=== PATIENT | male | born 2000 | race Caucasian/White ===

== ENCOUNTER 2019-07-16 19:29 | Emergency (ER) | payer MEDICAID, OTHER ==
--- NOTE | 2019-07-16 19:43 | EDM.PDOC ---
ED HPI GENERAL MEDICAL PROBLEM - General Stated Complaint: SORE THROAT Time Seen by Provider: 07/16/19 19:40 Source of Information: Reports: Patient History Limitations: Reports: No Limitations - History of Present Illness INITIAL COMMENTS - FREE TEXT/NARRATIVE: 18-year-old male who reports onset of sore throat 5 days ago. He also has left ear pain. Most of the pain is on his left throat. He reports pain as a 2/10 now but it was a 5/10 earlier. It is a getting tight pain that is worse with swallowing. No nasal congestion. No cough. No fevers. He has been sweating. No nausea or vomiting. He has been able to take liquids well. No body aches. There are no other associated signs or symptoms. There are no other modifying factors. 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 Surgical history as detailed below.) - Past Surgical History Musculoskeletal Surgical History: Reports: Other (See Below) (Conscious sedation /general anesthesia for closed reduction of left wrist.) Social & Family History - Tobacco Use Smoking Status *Q: Current Every Day Smoker - Alcohol Use Alcohol Use History: No - Living Situation & Occupation Occupation: Unemployed ED ROS ENT - Review of Systems Review Of Systems: See Below Constitutional: Reports: Malaise. Denies: Fever, Chills HEENT: Reports: Ear Pain (Left ear pain), Throat Pain Respiratory: Reports: No Symptoms Cardiovascular: Reports: No Symptoms GI/Abdominal: Reports: No Symptoms : Reports: No Symptoms Musculoskeletal: Reports: No Symptoms Skin: Reports: No Symptoms Neurological: Reports: No Symptoms Psychiatric: Reports: No Symptoms Hematologic/Lymphatic: Reports: No Symptoms Immunologic: Reports: No Symptoms ED EXAM, ENT - Physical Exam Exam: See Below Exam Limited By: No Limitations General Appearance: Alert, WD/WN, No Apparent Distress Eye Exam: Bilateral Eye: EOMI, Normal Inspection (Sclerae are anicteric) Ears: Normal External Exam, Normal Canal, Hearing Grossly Normal, Normal TMs Nose: Normal Inspection, Normal Mucousa, No Blood Mouth/Throat: Normal Gums, Normal Lips, Normal Teeth, Pharyngeal Erythema. No: Peritonsillar Mass Head: Atraumatic, Normocephalic Neck: Normal Inspection, Supple, Full Range of Motion, Lymphadenopathy (L) Respiratory/Chest: No Respiratory Distress, Lungs Clear, Normal Breath Sounds, No Accessory Muscle Use, Chest Non-Tender Cardiovascular: Normal Peripheral Pulses, Regular Rate, Rhythm, No Murmur GI/Abdominal: Normal Bowel Sounds, Soft, Non-Tender Back: Normal Inspection Extremities: Normal Inspection, Normal Range of Motion, Non-Tender, No Pedal Edema, Normal Capillary Refill Neurological: Alert, Oriented, CN II-XII Intact, Normal Cognition, No Motor/ Sensory Deficits Skin: Warm, Dry, Intact, Normal Color, No Rash Course - Vital Signs Last Recorded V/S: Last Vital Signs Temp 37.3 C 07/16/19 19:30 Pulse 90 07/16/19 19:30 Resp 16 07/16/19 19:30 BP 149/90 H 07/16/19 19:30 Pulse Ox 98 07/16/19 19:30 - Orders/Labs/Meds Labs: Rapid strep was positive. Meds: Medications Discontinued Medications Generic Name Dose Route Start Last Admin Trade Name Winter PRN Reason Stop Dose Admin Penicillin G Procaine/Benzathine 1.2 millunits 07/16/19 20:15 Bicillin C-R 600/600 IM 07/16/19 20:16 ONETIME ONE - Re-Assessments/Exams Free Text/Narrative Re-Assessment/Exam: 07/16/19 20:15: The rapid strep was positive. I will treat the patient with Bicillin 1.2 million units IM. He is in agreement with the plan for treatment with Bicillin. He should increase his fluid intake. He should rest. He may take Tylenol and ibuprofen for pain as needed. Precautions and reasons for return to the emergency department were discussed with the patient while he was in the emergency department and were detailed in his discharge instructions. Departure - Departure Time of Disposition: 20:30 Disposition: Home, Self-Care 01 Condition: Good Clinical Impression: Strep throat - Discharge Information Instructions: Strep Throat, Adult, [id number] Referrals: Roger Rodriguez MD [Primary Care Provider] - Additional Instructions: Your strep screen was positive. You were treated for your strep throat with a penicillin injection. This is all the antibiotics that he should require to treat this infection. You should increase your fluid intake. You should rest. You may take Tylenol 1000 mg by mouth every 6 hours as needed for pain. You may also take ibuprofen 600 mg by mouth every 6 hours as needed for pain. Back to the emergency department for inability to swallow liquids, trouble breathing, unrelenting vomiting or any other concerning sign or symptom. Sepsis Event Note - Focused Exam Vital Signs: Vital Signs Temp Pulse Resp BP Pulse Ox 07/16/19 19:30 37.3 C 90 16 149/90 H 98 Date Exam was Performed: 07/16/19 Time Exam was Performed: 20:21
[2019-07-16 19:53] VITALS: BP 149/90; PULSE 90
[2019-07-16] MEDS ORDERED: Penicillin G Benzathine/Procaine 600-600 1.2 Millunits/2 ML Syringe IM ONE (20:15)
== END 2019-07-16 20:35 | disposition home or self-care (01) ==
LOC: FB.ED 19:29
DX: J02.0 Streptococcal pharyngitis (principal); F17.200 Nicotine dependence, unspecified, uncomplicated; Z91.09 Other allergy status, other than to drugs and biological substances
CPT/HCPCS: 87880; 96372; 99283; J0558

== ENCOUNTER 2020-01-10 19:56 | Emergency (ER) | payer SELFPAY ==
--- NOTE | 2020-01-10 20:13 | EDM.PDOC ---
ED HPI GENERAL MEDICAL PROBLEM - General Chief Complaint: Eye Problems Stated Complaint: EYE INFECTION Time Seen by Provider: 01/10/20 20:10 Source of Information: Reports: Patient History Limitations: Reports: No Limitations - History of Present Illness INITIAL COMMENTS - FREE TEXT/NARRATIVE: 19-year-old male with rash over his left upper eyelid for greater than 1 year it seems to wax and wane and has a scaly appearance and sometimes he "peels some skin off" and he also has sores on both sides of his cheek which are different than this rash that he has only had for the past 3 days. The rash on his left upper eyelid is unchanged from previous. He has had no fevers or chills. There is no pain associated with this. He rates his pain as a 0/10. No vision problems. There is no drainage from his eye. No cough. No difficulty breathing. No trouble swallowing. There are no other associated signs or symptoms. There are no other modifying factors. He is brought into the emergency department by his mother for evaluation. Onset: Other (Rash on left upper eyelid for the past year or greater. 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 (see below) (Nothing) - Related Data Allergies Allergy/AdvReac Type Severity Reaction Status Date / Time animal hair Allergy Intermediate Hives and Uncoded 01/10/20 20:08 Itching Home Meds: Home Meds Clotrimazole [Clotrimazole 1%] 15 gm TOP BID #1 tube 01/10/20 [Rx] Doxycycline [Vibra-Tabs] 100 mg PO BID 7 Days #14 tablet 01/10/20 [Rx] Hydrocortisone [Hydrocortisone 2.5% Crm] 30 gm TOP BID #1 tube 01/10/20 [Rx] Past Medical History Psychiatric History: Reports: ADHD - Past Surgical History Musculoskeletal Surgical History: Reports: Other (See Below) (Conscious sedation/general anesthesia for closed reduction of left wrist.) Social & Family History - Tobacco Use Tobacco Use Status *Q: Current Every Day Tobacco User - Alcohol Use Alcohol Use History: Yes Alcohol Use Frequency: Rarely - Living Situation & Occupation Occupation: Employed (He works at [employer] ED ROS GENERAL - Review of Systems Review Of Systems: See Below Constitutional: Reports: No Symptoms HEENT: Reports: No Symptoms Respiratory: Reports: No Symptoms Cardiovascular: Reports: No Symptoms GI/Abdominal: Reports: No Symptoms : Reports: No Symptoms Musculoskeletal: Reports: No Symptoms Skin: Reports: Rash (On left upper eyelid), Lesions (Sores/vesicles on both cheeks) Neurological: Reports: No Symptoms Hematologic/Lymphatic: Reports: No Symptoms Immunologic: Reports: No Symptoms ED EXAM GENERAL W FULL EYE - Physical Exam Exam: See Below Exam Limited By: No Limitations General Appearance: Alert, WD/WN, No Apparent Distress Eye Exam: Bilateral Eye: EOMI, Normal Inspection Eyelids: Left: Other (Scaly, erythematous rash over medial left upper eyelid. There is a small Seguin area at the medial upper eyelid. There is no drainage from this area. There is no evidence of an active actual infection.) Conjunctiva & Sclera: Bilateral: Normal Appearance Extraocular Movements: Bilateral: Intact Ears: Normal External Exam, Hearing Grossly Normal Nose: Normal Inspection, Normal Mucosa, No Blood Throat/Mouth: Normal Inspection, Normal Oropharynx, Normal Voice, No Airway Compromise Head: Atraumatic, Normocephalic Neck: Normal Inspection, Supple, Non-Tender, Full Range of Motion Respiratory/Chest: No Respiratory Distress, No Accessory Muscle Use, Chest Non- Tender, Other (Good air movement bilaterally) Cardiovascular: Normal Peripheral Pulses, Regular Rate, Rhythm GI/Abdominal: Soft, Non-Tender, No Distention Back Exam: Normal Inspection Extremities: Normal Inspection, Normal Range of Motion, Non-Tender, No Pedal Edema, Normal Capillary Refill Neurological: Alert, Oriented, CN II-XII Intact, Normal Cognition, No Motor/Sensory Deficits Psychiatric: Normal Affect Skin Exam: Warm, Dry, Normal Color, Rash (On left upper, medial that is erythematous and somewhat scaly.), Other (Vesicles/sores on both cheeks consistent with impetigo) Course - Vital Signs Last Recorded V/S: Last Vital Signs Temp 36.8 C 01/10/20 20:05 Pulse 81 01/10/20 20:05 Resp 18 01/10/20 20:05 BP 151/82 H 01/10/20 20:05 Pulse Ox 99 01/10/20 20:05 - Orders/Labs/Meds Meds: Medications Discontinued Medications Generic Name Dose Route Start Last Admin Trade Name Winter PRN Reason Stop Dose Admin Doxycycline Hyclate 100 mg 01/10/20 21:02 Vibra-Tabs PO 01/10/20 21:03 ONETIME ONE - Re-Assessments/Exams Free Text/Narrative Re-Assessment/Exam: 01/10/20 20:45: Patient with what appears to be either eczema or possibly tinea capitis on the left upper lid that has been long-standing. It does not appear to have any cellulitis associated with it. I will have them use Lotrimin cream to the area and also hydrocortisone cream to the area twice daily. He also has an area on his cheeks that open wounds that look like impetigo. I will place him on doxycycline 100 mg twice a day days to treat this. For any further issues, I have advised him to follow-up with her primary provider. Departure - Departure Time of Disposition: 21:00 Disposition: Home, Self-Care 01 Condition: Good Clinical Impression: Impetigo, Rash - Discharge Information Prescriptions: Clotrimazole [Clotrimazole 1%] 15 gm TOP BID #1 tube Hydrocortisone [Hydrocortisone 2.5% Crm] 30 gm TOP BID #1 tube Doxycycline [Vibra-Tabs] 100 mg PO BID 7 Days #14 tablet Instructions: Impetigo, Adult Referrals: PCP,None [Primary Care Provider] - Forms: ED Department Discharge Additional Instructions: The rash on your eyelid is either eczema or it could be ringworm. Use the creams that I have prescribed you to treat this rash (clotrimazole 1% cream, hydrocortisone 2.5% cream). The sores on his cheek appear to be impetigo or a bacterial infection. I have placed him on an antibiotic for this (doxycycline). Good handwashing. Follow-up with the patient's primary doctor for any further problems. Sepsis Event Note (ED) - Focused Exam Vital Signs: Vital Signs Temp Pulse Resp BP Pulse Ox 01/10/20 20:05 36.8 C 81 18 151/82 H 99
[2020-01-10] MEDS ORDERED: Doxycycline 100 MG Tab PO ONE (21:02)
[2020-01-11 06:49] VITALS: BP 116/68; PULSE 78
== END 2020-01-10 21:45 | disposition home or self-care (01) ==
LOC: FB.ED 19:56
DX: L01.00 Impetigo, unspecified (principal); F17.200 Nicotine dependence, unspecified, uncomplicated; Z91.048 Other nonmedicinal substance allergy status
CPT/HCPCS: 99282; A9270-GY